=== PATIENT | female | born 1965 | race Caucasian/White ===

== ENCOUNTER 2023-10-13 14:19 | Emergency (ER) | payer OTHER, SELFPAY ==
[2023-10-13 14:39] VITALS: BP 133/80; PULSE 74; RESP 16; TEMP 37.2; O2SAT 100
--- NOTE | 2023-10-13 14:51 | ED.FEMALEGU ---
HPI - Female Genitourinary General Chief complaint: Urogenital-Female Stated complaint: urinary issue Time Seen by Provider: 10/13/23 14:51 Source: patient and RN notes reviewed Mode of arrival: ambulatory Limitations: no limitations History of Present Illness HPI Narrative: 57-year-old female presents concern for several day history of pelvic pressure, urinary hesitancy, urgency, frequency. Reports general malaise. Denies fever, nausea, abdominal pain, chills, sweats, vomiting, back pain. She reports took azo yesterday morning. MD elicited complaint: UTI Related Data Home Medications Medication Instructions Recorded Confirmed rizatriptan 10 mg disintegrating 10 mg PO PRN PRN Migraine Headache 10/13/23 10/13/23 tablet trazodone 100 mg tablet 150 mg PO HS 10/13/23 10/13/23 Allergies Allergy/AdvReac Type Severity Reaction Status Date / Time No Known Allergies Allergy Unverified 10/13/23 14:47 Review of Systems Review of Systems: CONSTITUTIONAL: Denies malaise, chills, sweats, or fever. CARDIOVASCULAR: Denies chest pain, palpitations, or edema. RESPIRATORY: Denies cough or dyspnea. GASTROINTESTINAL: Denies abdominal pain, nausea, vomiting, diarrhea GENITOURINARY: Reports dysuria, frequency, urgency. Denies flank pain or hematuria. SKIN: Denies rash or itching. MUSCULOSKELETAL: Denies back pain or myalgia. All systems reviewed & are unremarkable except as noted in HPI and below PMFSH Comments At time of signature, agree with nursing past medical, surgical, social and family history. There is no relevant family history pertinent to the presenting complaint Exam Narrative: GENERAL: Well-appearing, well-nourished, and in no acute distress. HEAD: Normocephalic. EYES: PERRLA, conjunctivae clear. NECK: Supple. No lymphadenopathy CHEST: Clear to auscultation. No respiratory distress. HEART: Regular rate and rhythm. ABDOMEN: Soft, nontender upon palpation, nondistended, normal active bowel sounds, no palpable or pulsatile masses, no guarding. No CVA tenderness SKIN: Warm, dry, no rash. NEURO: Alert and oriented x3. PSYCH: Normal mood and affect Course Course Emergency Course: Patient is aware of diagnosis, understands and agrees to treatment plan. Anticipatory guidance given. Patient agrees to follow-up as directed and is aware of reasons to seek care at the emergency department. Portions of this record may have been created with voice recognition software Level of Care: Express Care Visit Vital Signs Vital signs: Vital Signs Temperature 98.9 F 10/13/23 14:39 Pulse Rate 74 10/13/23 14:39 Respiratory Rate 16 10/13/23 14:39 Blood Pressure 133/80 10/13/23 14:39 Pulse Oximetry 100 10/13/23 14:39 Oxygen Delivery Room Air 10/13/23 14:39 Temperature 98.9 F 10/13/23 14:39 Pulse Rate 74 10/13/23 14:39 Respiratory Rate 16 10/13/23 14:39 Blood Pressure 133/80 10/13/23 14:39 Pulse Oximetry 100 10/13/23 14:39 Oxygen Delivery Room Air 10/13/23 14:39 Reviewed. MDM - Female Genitourinary MDM Narrative Medical decision making narrative: Exam findings and UA show no acute concerns or changes; patient is non-toxic appearing and is in no distress. Patient is appropriate for outpatient treatment and follow-up. Differential Diagnosis Differential diagnosis: Likely urinary tract infection and cystitis Lab Data Labs: Urine Glucose Negative Reference Range: Negative Urine Bilirubin Negative Reference Range: Negative Urine Ketone Negative Reference Range: Negative Urine Specific [place] 1.010 Reference Range:1.001-1.035 Urine Blood 2+
== END 2023-10-13 15:00 | disposition home or self-care (01) ==
PROVIDERS: Emergency Provider Nurse Practitioner; PCP Family Medicine
DX: N39.0 Urinary tract infection, site not specified (principal); B96.89 Other specified bacterial agents as the cause of diseases classified elsewhere; Z98.84 Bariatric surgery status
CPT/HCPCS: 81003; 87077; 87086; 87088; 87186; 99213; G0463

== ENCOUNTER 2023-10-19 07:36 | Outpatient (CLI) | payer OTHER, SELFPAY ==
--- NOTE | ~2023-10-19 | MM_ITS ---
SyedajasonArabella hancock 1965 Bilateral digital screening mammogram with Tomosynthesis and CAD DATE: 10/19/2023 INDICATION: Screening TECHNIQUE: Digital MLO and CC 3-D Tomosynthesis images with generation of 2-D mammographic images. CA D was submitted and interpreted. COMPARISON: None available at this institution Breast parenchymal composition: There are scattered areas of fibroglandular tissue. FINDINGS: There is mild fibroglandular asymmetry. No suspicious mass or architectural distortion, mal ignant calcification, skin thickening or retraction is detected. IMPRESSION: BI-RADS Category 1: Negative Recommendation: Routine annual mammographic screening Reviewed, dictated and finalized at [facility]. Reviewed, dictated and finalized at location [facility].
== END 2023-10-19 07:37 | disposition home or self-care (01) ==
LOC: ANHIMG 07:38
PROVIDERS: PCP Family Medicine; Visit Provider Physician Assistant Medical
DX: Z12.31 Encounter for screening mammogram for malignant neoplasm of breast (principal)
CPT/HCPCS: 77063; 77067

== ENCOUNTER 2023-11-08 10:27 | Outpatient (CLI) | payer OTHER, SELFPAY ==
--- NOTE | ~2023-11-08 | XR_ITS ---
XR knee LT 3V DATE: 11/08/2023 10:47 INDICATION: Left knee pain TECHNIQUE: AP, lateral, sunrise views COMPARISON: None FINDINGS: There is mild periarticular spurring at the patellofemoral joint. There is moderately severe loss of medial compartment joint space with periarticular spurring of the medial femoral condyle and medial tibial plateau. No fracture or dislocation or joint effusion is evident. No radiopaque intra-articular loose body or chondrocalcinosis. No fracture, dislocation, periosteal reaction or bone destruction. Osteopenia. IMPRESSION: Osteoarthritis involving particularly the medial compartment Osteopenia Reviewed, dictated and finalized at [facility].
== END 2023-11-08 10:28 ==
LOC: MICIMG 10:28
PROVIDERS: PCP Family Medicine; Visit Provider Physician Assistant Medical
DX: M85.862 Other specified disorders of bone density and structure, left lower leg (principal); M17.12 Unilateral primary osteoarthritis, left knee
CPT/HCPCS: 73562

== ENCOUNTER 2024-01-03 08:57 | Emergency (ER) | payer BC, SELFPAY ==
[2024-01-03] VITALS (7 sets, daily range): BP systolic 119–148; BP diastolic 75–88; PULSE 86–110; RESP 13–24; TEMP 36.9; O2SAT 94–98
--- NOTE | ~2024-01-03 | CT_ITS ---
EXAMINATION: CT brain wo con DATE: 01/03/2024 10:35 INDICATION: Headache. Left ear pain. TECHNIQUE: Computed tomography (CT) of the head was performed without intravenous contrast. The mA wa s adjusted according to patient size. Iterative reconstruction technique was employed. The dose-lengt h product was 681.00 mGy-cm. COMPARISON: None FINDINGS: There is no intracranial hemorrhage, acute infarction, or abnormal intracranial mass lesion . The ventricles are normal in size. The orbits are normal. There is mucosal thickening in the parana laney sinuses. The mastoid air cells are normal. IMPRESSION: 1. Normal brain. Reviewed, dictated and finalized at location [facility]. IMPRESSION: 1. Normal brain.
--- NOTE | ~2024-01-03 | XR_ITS ---
EXAMINATION: XR chest 2V DATE: 01/03/2024 10:44 INDICATION: Fever and cough. Nausea. Diarrhea. TECHNIQUE: Frontal and lateral views of the chest were obtained. COMPARISON: None. FINDINGS: There is no pneumonia, pleural effusion, or pneumothorax. The heart size is normal. There a re surgical clips in the abdomen. IMPRESSION: 1. No acute cardiopulmonary disease. Reviewed, dictated and finalized at location [facility].
[2024-01-03 09:53] LABS: Influenza A QL RT-PCR Negative (Negative); Influenza B QL RT-PCR Negative (Negative); RSV RNA, RT-PCR Negative (Negative); SARS-CoV-2 RNA PCR Negative (Negative)
--- NOTE | 2024-01-03 10:26 | ED.URI ---
HPI - URI/Sore Throat General Chief Complaint: Upper Respiratory Infection Stated Complaint: Migrane, ND, cough Time Seen by Provider: 01/03/24 09:18 Source: patient Mode of arrival: ambulatory Limitations: no limitations History of Present Illness HPI Narrative: This is a 58-year-old female that presents to the emergency department for cold symptoms present over the last 2 days. Reports fevers, cough, congestion, and headache. Also reports left-sided ear pain. Reports history of migraines, but this 1 has been a little more persistent. She did take rizatriptan and some Tylenol this morning. Denies focal numbness or weakness. Related Data Home Medications Medication Instructions Recorded Confirmed meloxicam 15 mg tablet 15 mg PO DAILY 10/18/23 10/18/23 Allergies Allergy/AdvReac Type Severity Reaction Status Date / Time No Known Allergies Allergy Verified 11/08/23 09:41 Review of Systems Review of Systems: CONSTITUTIONAL: Reports fever ENT: Report congestion, and otalgia. Denies sore throat RESPIRATORY: Reports cough. Denies dyspnea. GASTROINTESTINAL: Reports nausea and diarrhea. All systems reviewed & are unremarkable except as noted in HPI and below PMFSH Past Medical History Medical History Allergies Anxiety Arthritis Headache Migraine Surgical History Surgical History H/O: hysterectomy Family History Family History Father Hypertension Cancer Mother Diabetes mellitus Hypertension Social History Social History Smoking status: Never smoker Alcohol intake: never Substance use: never Do You Feel Safe in your Home?: Yes Lack of Transportation: No Currently Unemployed: No Living arrangements: with family Occupation/Education: occupation Gender identity (if verbalized by the patient): Female Sexual Orientation (if Verbalized by the Patient): Straight or Heterosexual Agree to blood products: Yes Exam Narrative: GENERAL: Well-appearing, well-nourished, and in no acute distress. HEAD: Normocephalic, atraumatic. EYES: PERRLA and EOMI. ENT: Nares clear, no rhinorrhea or epistaxis. Mucous membranes moist. Oropharynx without tonsillar hypertrophy exudate or other lesions. Bilateral TMs p[place] non-bulging NECK: Supple. No adenopathy or masses. CHEST: Clear to auscultation. No respiratory distress. No wheezes rales or rhonchi HEART: Regular rate and rhythm. No murmur heard. Normal peripheral pulses. EXTREMITIES: Normal range of motion. No edema. SKIN: Warm, dry, no rash. NEURO: No focal deficits. Alert and oriented x3. CN II-XII grossly intact PSYCH: Normal mood and affect Course Course Emergency Course: Patient updated on her workup and agrees with plan of care. reports relief with migraine cocktail Vital Signs Vital signs: Vital Signs Temperature 98.4 F 01/03/24 09:05 Pulse Rate 110 H 01/03/24 09:05 Respiratory Rate 16 01/03/24 09:05 Blood Pressure 129/85 01/03/24 09:05 Pulse Oximetry 96 01/03/24 09:05 Oxygen Delivery Room Air 01/03/24 09:05 Temperature 98.4 F 01/03/24 09:05 Pulse Rate 98 01/03/24 11:03 Respiratory Rate 16 01/03/24 11:03 Blood Pressure 148/88 H 01/03/24 11:03 Pulse Oximetry 96 01/03/24 11:03 Oxygen Delivery Room Air 01/03/24 09:05 MDM - URI/Sore Throat MDM Narrative Medical decision making narrative: Patient presents to the emergency department for viral symptoms present over the last couple of days. Reporting headache, congestion, cough, some vomiting and diarrhea. she is afebrile and nontoxic appearing. Mildly tachycardic upon arrival, this normalized with IV fluids. She is neurologically intact. Cbc without leukocytosis. Weir
[2024-01-03] MEDS: diphenhydrAMINE HCl INJ 50 MG/ML VIAL 25 MG IV PUSH (10:47)
[2024-01-03] MEDS: SODIUM CHLORIDE 0.9% IV 1,000 ML 999 ML IV CONT (10:47)
[2024-01-03] MEDS: METOCLOPRAMIDE HCL INJ 10 MG/2 ML VIAL IV PUSH (10:47)
[2024-01-03] MEDS: KETOROLAC 15 MG/ML VIAL (*BKC) IV PUSH (10:47)
[2024-01-03 11:00] LABS: Basophils Percent Auto 0.4 % (0.2-1.2); Hematocrit 43.9 % (37.0-47.0); Hemoglobin 14.1 g/dL (12.0-15.0); Immature Granulocyte Absolute 0.01 K/mm3 (0.00-0.031); Immature Granulocyte Percent A 0.2 % (0-0.5); Lymphocytes Absolute Auto 0.52 K/mm3 (0.9-3.2); Lymphocytes Percent Auto 9.4 % (18.3-44.2); Mean Corpuscular HGB Conc 32.1 g/dl (32-36); Mean Corpuscular Hemoglobin 27.2 pg (26-34); Mean Corpuscular Volume 84.7 fl (80-100); Mean Platelet Volume 9.7 fl (7.4-10.4); Monocytes Absolute Auto 0.5 K/mm3 (0.1-0.6); Monocytes Percent Auto 9.3 % (2.6-8.5); Neutrophils Absolute Auto 4.5 K/mm3 (1.3-6.7); Neutrophils Percent Auto 80.7 % (45.5-73.1); Platelet Count Result 234 k/mm3 (150-375); Red Blood Count 5.18 M/mm3 (4.2-5.4); Red Cell Distribution Width 17.8 % (11.5-14.5); White Blood Count 5.5 K/mm3 (4.5-10.0)
[2024-01-03 11:16] LABS: Alanine Aminotransferase 91 U/L (6-35); Albumin Level 4.2 g/dL (3.5-5.1); Alkaline Phosphatase 178 U/L (38-126); Anion Gap 9 mmol/L (4-12); Aspartate Amino Transferase 189 U/L (14-36); Bilirubin,Total 1.2 mg/dL (0.2-1.3); Blood Urea Nitrogen 15 mg/dL (7-17); Carbon Dioxide 22 mmol/L (22-30); Chloride 102 mmol/L (98-107); Estimated CRCL calculation 95 ml/min; Estimated Glomerular Filt Rate > 60; Glucose 112 mg/dL (65-110); Potassium 3.5 mmol/L (3.4-5.0); Sodium 133 mmol/L (137-145)
[2024-01-03 13:10] LABS: Hepatitis B Surface Antigen Negative (Negative)
[2024-01-03 13:15] LABS: HAV RESULT Negative (Negative); Hepatitis B Core IgM Result Negative (Negative)
[2024-01-03 13:27] LABS: Hepatitis C Virus Antibody Negative (Negative)
== END 2024-01-03 11:45 | disposition home or self-care (01) ==
PROVIDERS: Student in an Organized Health Care Education/Training Program; Emergency Provider Physician Assistant; PCP Family Medicine
DX: B34.9 Viral infection, unspecified (principal); G43.909 Migraine, unspecified, not intractable, without status migrainosus; R74.01 Elevation of levels of liver transaminase levels; Z20.822 Contact with and (suspected) exposure to COVID-19; M19.90 Unspecified osteoarthritis, unspecified site; Z90.710 Acquired absence of both cervix and uterus; Z79.85 Long-term (current) use of injectable non-insulin antidiabetic drugs; Z79.899 Other long term (current) drug therapy
CPT/HCPCS: 36415; 70450; 71046; 80053; 80074; 85025; 87637; 96361; 96374; 96375; 99284; J1200; J1885; J2765; J7030

== ENCOUNTER 2024-04-09 14:18 | Outpatient (CLI) | payer BC, SELFPAY ==
--- NOTE | ~2024-04-09 | XR_ITS ---
EXAMINATION: XR hand RT 2V DATE: 04/09/2024 14:30 INDICATION: Pain in right second metacarpal. TECHNIQUE: 2 views of right hand were obtained. COMPARISON: None. FINDINGS: Bone alignment is normal. No fracture. There is mild osteoarthritis of first carpometacarpa l joint and fourth and fifth proximal interphalangeal joints. IMPRESSION: 1. Mild polyarticular osteoarthritis. Reviewed, dictated and finalized at location [facility].
== END 2024-04-09 14:19 | disposition home or self-care (01) ==
LOC: MICIMG 14:20
PROVIDERS: PCP Family Medicine; Visit Provider Physician Assistant Medical
DX: M19.041 Primary osteoarthritis, right hand (principal)
CPT/HCPCS: 73120

== ENCOUNTER 2024-04-13 13:50 | Emergency (ER) | payer BC, SELFPAY ==
--- NOTE | ~2024-04-13 | XR_ITS ---
XR chest 2V DATE: 04/13/2024 14:12 INDICATION: Upper chest pain following a fall one week ago TECHNIQUE: 2 views COMPARISON: 01/03/2024 2 view chest FINDINGS: Heart size is within normal limits. There is mild aortic tortuosity. No pulmonary infiltrate or consolidation, pleural effusion or pulmonary vascular congestion or pneumo thorax is detected. Surgical clips overlie the left and right upper quadrants of the abdomen. IMPRESSION: No active cardiopulmonary disease Postoperative change of left and right upper quadrants Reviewed, dictated and finalized at location [facility].
--- NOTE | 2024-04-13 13:58 | ED.GENADULT ---
HPI - General Adult General Chief complaint: Unspecified Stated complaint: chest injury left side,hard to take deep breath Time Seen by Provider: 04/13/24 14:14 Source: patient, RN notes reviewed and old records reviewed Mode of arrival: ambulatory Limitations: no limitations History of Present Illness HPI narrative: 58-year-old female presents to the [facility] with rib pain from a fall approximately 8 days ago. Reports some shortness breath. Pain with movement and deep breathing. Patient states that she fell on the 05 of May Patient reports taking Tylenol and Motrin. Onset (ago): day(s) (8) Related Data Home Medications Medication Instructions Recorded Confirmed meloxicam 15 mg tablet 15 mg PO DAILY 10/18/23 04/13/24 Allergies Allergy/AdvReac Type Severity Reaction Status Date / Time No Known Allergies Allergy Verified 04/13/24 14:00 Review of Systems Review of Systems: All systems reviewed & are unremarkable except as noted in HPI and below Constitutional: Constitutional: Reports no additional constitutional complaints Eyes: Eyes: Reports no additional eye complaints ENT: Reports system reviewed and no additional complaints, except as documented Cardiovascular: Cardiovascular: Reports no additional cardiovascular complaints, Denies chest pain and Denies dyspnea Respiratory: Respiratory: Reports no additional respiratory complaints, Denies chest congestion, Denies cough and Denies dyspnea Gastrointestinal: Gastrointestinal: Reports no additional gastrointestinal complaints, Denies abdominal pain, Denies nausea and Denies vomiting Musculoskeletal: Musculoskeletal: Reports as per HPI Integumentary/Breasts: Skin/Breast: Reports system reviewed and no additional complaints, except as docu Neurologic: Reports system reviewed and no additional complaints, except as documented Psychiatric: Psychiatric: Reports no additional psychiatric complaints Allergic/Immunologic: Allergic/Immunologic: Reports no additional allergic/immunologic complaints [facility] Past Medical History Medical History Allergies Anxiety Arthritis Headache Migraine Surgical History Surgical History H/O: hysterectomy Family History Family History Father Hypertension Cancer Mother Diabetes mellitus Hypertension Social History Social History Smoking status: Never smoker Alcohol intake: never Substance use: never Do You Feel Safe in your Home?: Yes Lack of Transportation: No Currently Unemployed: No Living arrangements: with family Occupation/Education: occupation Gender identity (if verbalized by the patient): Female Sexual Orientation (if Verbalized by the Patient): Straight or Heterosexual Agree to blood products: Yes Comments At the time of my signature, I reviewed and agree with the nursing past medical, surgical, social, and family history. There is no relevant family history pertinent to the patient complaint. Exam Const: General: cooperative, healthy appearing, comfortable, no acute distress, well developed, alert and well nourished Nutritional Appearance: well nourished Orientation/consciousness: patient oriented x3 Limitations: no limitations HENMT: Head: normal to inspection Ears: hearing grossly normal bilaterally and external ears normal Face/Nose/Sinus: Normal external nose present, Normal nares present, Normal nasal mucous membranes and turbinates present, normal facial exam and face symmetric Face and sinus: normal facial exam and face symmetric Eyes: General: appearance normal, both eyes and all related structures Alignment and Position: alignment normal Periorbital: periorbital findings normal Neck: Neck: normal visual inspection, full ROM, no lymphadenopa
[2024-04-13 14:01] VITALS: BP 166/92; PULSE 71; RESP 16; TEMP 36.8; O2SAT 98
== END 2024-04-13 14:56 | disposition home or self-care (01) ==
PROVIDERS: Emergency Provider Nurse Practitioner; PCP Family Medicine
DX: R07.89 Other chest pain (principal); W19.XXXA Unspecified fall, initial encounter; M19.90 Unspecified osteoarthritis, unspecified site
CPT/HCPCS: 71046; 99213; G0463

== ENCOUNTER 2024-10-11 09:11 | Emergency (ER) | payer BC, SELFPAY ==
--- NOTE | 2024-10-11 09:21 | ED_ITS ---
HPI - Female Genitourinary General Chief complaint: Urogenital-Female Stated complaint: urinary issue Time Seen by Provider: 10/11/24 09:28 Source: patient, RN notes reviewed and old records reviewed Mode of arrival: ambulatory Limitations: no limitations History of Present Illness HPI Narrative: 58-year-old female presents to the [facility] with pain with as well as frequency and urgency since 6:00 a.m. this morning. Reports she had abnormal small to or urine. States that she started drinking water. No symptoms yesterday. Denies abdominal pain. No CVA tenderness. Denies fevers. No nausea vomiting. Reports that she increased the amount of water Related Data Allergies Allergy/AdvReac Type Severity Reaction Status Date / Time No Known Allergies Allergy Verified 10/11/24 09:20 Review of Systems Review of Systems: All systems reviewed & are unremarkable except as noted in HPI and below Constitutional: Constitutional: Reports no additional constitutional complaints ENT: Reports system reviewed and no additional complaints, except as documented Cardiovascular: Cardiovascular: Reports no additional cardiovascular complaints, Denies chest pain and Denies dyspnea Respiratory: Respiratory: Reports no additional respiratory complaints, Denies chest congestion, Denies cough and Denies dyspnea Gastrointestinal: Gastrointestinal: Denies abdominal pain Genitourinary: Genitourinary: Reports as per HPI, Reports dysuria and Reports urinary urgency Musculoskeletal: Musculoskeletal: Reports no additional musculoskeletal complaints Integumentary/Breasts: Skin/Breast: Reports system reviewed and no additional complaints, except as docu PMFSH Past Medical History Medical History Migraine Headache Arthritis Anxiety Allergies Surgical History Surgical History H/O: hysterectomy Family History Family History Father Hypertension Cancer Mother Diabetes mellitus Hypertension Social History Social History Smoking status: Never smoker Alcohol intake: never Substance use: never Do You Feel Safe in your Home?: Yes Lack of Transportation: No Currently Unemployed: No Living arrangements: with family Occupation/Education: occupation Gender identity (if verbalized by the patient): Female Sexual Orientation (if Verbalized by the Patient): Straight or Heterosexual Agree to blood products: Yes Comments At the time of my signature, I reviewed and agree with the nursing past medical, surgical, social, and family history. There is no relevant family history pertinent to the patient complaint. Exam Const: General: cooperative, healthy appearing, comfortable, no acute distress, well developed, alert and well nourished Nutritional Appearance: well nourished Orientation/consciousness: patient oriented x3 Limitations: no limitations HENMT: Head: normal to inspection Eyes: General: appearance normal, both eyes and all related structures Alignment and Position: alignment normal Neck: Neck: normal visual inspection, full ROM, no lymphadenopathy and no meningeal signs Chest: Chest palpation & inspection: normal inspection of the chest Resp: Effort & Inspection: normal respiratory effort and able to speak in complete sentences Auscultation: clear to auscultation bilaterally, no crackles, no rales, no rhonchi and no wheezes Cardio: Rate: regular rate GI: GI Palp: No abdominal tenderness : General: Yes no CVA tenderness Skin: General skin exam: normal color and no rashes or lesions noted Neuro: General: patient oriented x3, gait normal, moves all extremities and no meningeal signs Cognition (Neuro): normal cognition Speech: normal speech Gait exam (Neuro): Normal gait present Extrem: General: normal to inspection, full ROM, capillary refill normal and normal gait Psych: Appearance: grossly normal and well kempt Mental Status: mental status grossly normal Speech and movement: Normal speech and movement present and Clear speech present Affect: normal affect Attitude: cooperative Course Course Level of Care: Express Care Visit Vital Signs Vital signs: Vital Signs Temperature 96.7 F L 10/11/24 09:34 Pulse Rate 70 10/11/24 09:34 Respiratory Rate 16 10/11/24 09:34 Blood Pressure 144/89 H 10/11/24 09:34 Pulse Oximetry 100 10/11/24 09:34 Oxygen Delivery Room Air 10/11/24 09:34 Temperature 96.7 F L 10/11/24 09:34 Pulse Rate 70 10/11/24 09:34 Respiratory Rate 16 10/11/24 09:34 Blood Pressure 144/89 H 10/11/24 09:34 Pulse Oximetry 100 10/11/24 09:34 Oxygen Delivery Room Air 10/11/24 09:34 Reviewed MDM - Female Genitourinary MDM Narrative Medical decision making narrative: Patient sitting in exam room. Nontoxic, vitals stable. Patient in no acute distress. Patient presents with urinary symptoms since 6:00 a.m. this morning. Patient urine showed probability of a UTI, positive nitrites positive leukocytes. Will treat with antibiotics. Discussed signs and symptoms proceed to the emergency room which she verbalized understanding. Discharge instructions reviewed with patient, as well as provided in writing per nursing staff. The instructions also include specific and strict return/GO TO THE ER as well as f/u information. All questions have been answered, and the patient deny any further questions with discharge and discharge plan. Some parts of this dictation were generated by voice recognition software and may contain typographical and/or grammatical inaccuracies. Differential Diagnosis Differential diagnosis: Likely urinary tract infection and cystitis Lab Data Labs: Lab Results 10/11/24 Range/Units 09:28 POC Urine Color Yellow POC Urine Clarity Clear POC Urine pH 6.0 POC Ur Specif [place] 1.020 POC Urine Protein 2+ (Negative) POC Ur Glucose (UA) Negative (Negative) POC Urine Ketones Negative (Negative) POC Urine Blood 3+ (Negative) POC Urine Nitrite Positive (Negative) POC Urine Bilirubin Negative (Negative) POC Urine Urobilinogen 2.0 POC U Leukocyte Esteras 3+ (Negative) reviewed Critical Care Time Critical Care Time Critical Care Time: No Discharge Plan Discharge Clinical Impression: Urinary tract infection Qualifiers: Urinary tract infection type: acute cystitis Hematuria presence: with hematuria Qualified Code(s): N30.01 - Acute cystitis with hematuria Patient Disposition: Home, Self-Care Condition: Stable Instructions: Antibiotic Form, Urinary Tract Infection in Women (DC) Additional Instructions: Today your blood pressure was 144/89. Is recommended to follow-up with primary care provider to have this rechecked. Increased water intake Take Tylenol as needed for pain Take antibiotic as prescribed Today your urine dip showed a probability of a UTI. You have been prescribed an antibiotic. Your urine will be sent to our lab for a culture. If at that time a bacteria grows that is not covered by the antibiotic prescribed you will be notified. Follow-up with primary care For new or worsening symptoms go directly to the emergency room Patient Language: [place] Prescriptions: New amoxicillin-pot clavulanate 875-125 mg tablet 1 tablet PO Q12H Qty: 10 0RF No Action rizatriptan 10 mg tablet,disintegrating 10 mg PO PRN MDD 3 PRN (Reason: Migraine Headache) Qty: 42 12RF Wegovy 2.4 mg/0.75 mL pen injector 2.4 mg subcut WEEKLY Qty: 3 3RF Follow-up/Referrals: PHYSICIAN NOT ON STAFF,NONSTAFF [Primary Care Provider] - Time of Disposition: 09:42
[2024-10-11 09:30] LABS: EDUAAPPEAR Clear; EDUABILI Negative (Negative); EDUABLOOD 3+ (Negative); EDUACOLOR1 Yellow; EDUAGLUCOSE Negative (Negative); EDUAKETONE Negative (Negative); EDUALEUKO 3+ (Negative); EDUANITRATE Positive (Negative); EDUAPROTEIN 2+ (Negative)
[2024-10-11 09:34] VITALS: BP 144/89; PULSE 70; RESP 16; TEMP 35.9; O2SAT 100
== END 2024-10-11 09:47 | disposition home or self-care (01) ==
PROVIDERS: Emergency Provider Nurse Practitioner
DX: N30.01 Acute cystitis with hematuria (principal)
CPT/HCPCS: 81003; 87086; 99213; G0463

== ENCOUNTER 2025-04-10 11:24 | Outpatient (CLI) | payer BC, SELFPAY ==
--- NOTE | ~2025-04-10 | XR_ITS ---
Clinical history:Neck pain EXAM:X-ray cervical spine 2-3 views TECHNIQUE:4 images of the cervical spine were obtained. Comparisons:None available FINDINGS: Bones appear osteopenic. Predental space is within normal limits. No prevertebral soft tissue swelling. Straightening of the normal cervical lordosis. Severe intervertebral disc space narrowing at the C3-C4, C4-C5, C5-C6, C6-C7 and C7-T1 levels. Moderate to severe degenerative change in the facet joints and uncovertebral joints. Lateral dental intervals are within normal limits. IMPRESSION: 1. No compression fracture in the cervical spine. 2. Multilevel degenerative change in the cervical spine as detailed above. If symptoms persist or worsen, consider an MRI of the cervical spine for further assessment Reviewed, dictated and finalized at location [facility]. IMPRESSION: 1. No compression fracture in the cervical spine. 2. Multilevel degenerative change in the cervical spine as detailed above. If symptoms persist or worsen, consider an MRI of the cervical spine for furth er assessment
== END 2025-04-10 11:25 | disposition home or self-care (01) ==
DX: M50.30 Other cervical disc degeneration, unspecified cervical region (principal)
CPT/HCPCS: 72040